=== PATIENT | male | born 1975 | race Caucasian/White ===

== ENCOUNTER 2017-02-20 18:50 | Emergency (ER) | payer BC ==
[2017-02-20 19:08] VITALS: BP 127/73
[2017-02-20] MEDS ORDERED: predniSONE TAB* 20 MG PO ONE (19:20)
--- NOTE | 2017-02-20 19:20 | UC ---
Lower Extremity/Ankle HPI - HPI Summary HPI Summary: 4 days of left foot pain, with erythema of the first great MCP joint. Pain with weight bearing, and pain is not relieved by use of ibuprofen. He has a previous history of the same, and recalls seeing Dr. Mata about 4 years ago and being diagnosed with gout. Indomethacin was given at that time, and he stopped it after one dose due to dizziness. He has recently lost 10 pounds when he gave up soda and began eating salads, less beef. He does not drink alcohol. - History of Current Complaint Chief Complaint: UCLowerExtremity Stated Complaint: LEFT FOOT COMPLAINT Time Seen by Provider: 02/20/17 18:58 Hx Obtained From: Patient Onset/Duration: Gradual Onset, Lasting Days - 4 Severity Initially: Moderate Severity Currently: Moderate Aggravating Factor(s): Standing, Ambulation Alleviating Factor(s): Rest Able to Bear Weight: Yes - Risk Factors Gout Risk Factors: Age Over 40, Male, Obesity DVT Risk Factors: Negative Septic Arthritis Risk Factor: Negative - Allergies/Home Medications Allergies/Adverse Reactions: Allergies Allergy/AdvReac Type Severity Reaction Status Date / Time No Known Allergies Allergy Verified 02/20/17 19:03 Home Medications: Home Medications Ibuprofen TAB* [Advil TAB*] 800 mg PO Q6H PRN 02/20/17 [History Confirmed ] PMH/Surg Hx/FS Hx/Imm Hx - Additional Past Medical History Additional PMH: obese - Surgical History Surgical History: Yes Surgery Procedure, Year, and Place: uvula, tonsils 09/2015 Dr. Weiss - Family History Known Family History: Positive: Other - mother has had pancreatic cancer. - Social History Occupation: Employed Full-time - works for [employer] Lives: With Family Alcohol Use: None Substance Use Type: None Smoking Status (MU): Never Smoked Tobacco Review of Systems Constitutional: Other - recent weight loss. Skin: Negative Eyes: Negative ENT: Negative Respiratory: Negative Cardiovascular: Negative Gastrointestinal: Negative Genitourinary: Negative Motor: Negative Neurovascular: Negative Musculoskeletal: Arthralgia Neurological: Negative Psychological: Negative All Other Systems Reviewed And Are Negative: Yes Physical Exam Triage Information Reviewed: Yes Appearance: Pain Distress - mild to moderate., Obese Vital Signs: Initial Vital Signs Temp 98.1 F 02/20/17 18:56 Pulse 61 02/20/17 18:56 Resp 18 02/20/17 18:56 BP 127/73 02/20/17 18:56 Pulse Ox 98 02/20/17 18:56 Eye Exam: Normal Respiratory: Positive: Lungs clear, Normal breath sounds Cardiovascular: Positive: RRR, No Murmur Musculoskeletal: Positive: Other: - left great toe with erythema and swelling, extending to the medial forefoot. MTP rom is decreased. Ankle rom is ok. Neurological Exam: Normal Neurological: Positive: Alert Psychological Exam: Normal Skin: Positive: Other - erythema left foot Lower Extremity Course/Dx - Course Course Of Treatment: steroids tonight. colchicine tomorrow. Continue nsaid's and he might try use of indomethacin. - Differential Dx/Diagnosis Differential Diagnosis/HQI/PQRI: Bursitis, Cellulitis, Gout, Sprain Provider Diagnoses: gout left foot Discharge - Discharge Plan Condition: Stable Disposition: HOME Prescriptions: Colchicine* [Colcrys*] 0.6 mg PO BID #2 tab Patient Education Materials: Gout (ED) Additional Instructions: Follow up with Dr. Mata for blood pressure check and to determine need for blood work to follow up on treatment of gout. You have had a high dose oral steroid tonight, and tomorrow you will take colchicine to help break up the crystals. You can continue use of ibuprofen 800mg every 6 hours for control of pain for the next several days.
== END 2017-02-20 19:42 | disposition home or self-care (01) ==
LOC: UCCORT 18:50
DX: M10.072 Idiopathic gout, left ankle and foot (principal); E66.9 Obesity, unspecified
CPT/HCPCS: 99212; G0463; J7512

== ENCOUNTER 2017-03-05 16:53 | Emergency (ER) | payer BC ==
[2017-03-05 17:04] VITALS: BP 135/64
--- NOTE | 2017-03-05 18:18 | UC ---
Lower Extremity/Ankle HPI - HPI Summary HPI Summary: see previously for same c/o treated with cholcrys with relief for a few days. Now has return of pain in left great toe with erythema--is unable to get in to pcp for 6 weeks - History of Current Complaint Chief Complaint: UCLowerExtremity Stated Complaint: LEFT FOOT PAIN Time Seen by Provider: 03/05/17 18:15 Hx Obtained From: Patient Onset/Duration: Gradual Onset, Lasting Weeks, Still Present Severity Initially: Moderate Severity Currently: Moderate Pain Intensity: 6 Pain Scale Used: 0-10 Numeric Aggravating Factor(s): Standing, Ambulation Alleviating Factor(s): Rest Able to Bear Weight: Yes - Allergies/Home Medications Allergies/Adverse Reactions: Allergies Allergy/AdvReac Type Severity Reaction Status Date / Time No Known Allergies Allergy Verified 03/05/17 17:04 PMH/Surg Hx/FS Hx/Imm Hx Previously Healthy: Yes - Surgical History Surgical History: Yes Surgery Procedure, Year, and Place: uvula, tonsils 09/2015 Dr. Weiss - Family History Known Family History: Positive: Other - mother has had pancreatic cancer. - Social History Occupation: Employed Full-time Lives: With Family Alcohol Use: None Substance Use Type: None Smoking Status (MU): Never Smoked Tobacco Review of Systems Constitutional: Negative Skin: Negative Eyes: Negative ENT: Negative Respiratory: Negative Cardiovascular: Negative Gastrointestinal: Negative Genitourinary: Negative Motor: Negative Neurovascular: Negative Musculoskeletal: Arthralgia - left great toe, Edema - around left great toe Neurological: Negative Psychological: Negative All Other Systems Reviewed And Are Negative: Yes Physical Exam Triage Information Reviewed: Yes Appearance: Well-Appearing, No Pain Distress, Well-Nourished Vital Signs: Initial Vital Signs Temp 97.8 F 03/05/17 16:55 Pulse 67 03/05/17 16:55 Resp 18 03/05/17 16:55 BP 135/64 03/05/17 16:55 Pulse Ox 98 03/05/17 16:55 Vital Signs Reviewed: Yes Eye Exam: Normal Eyes: Positive: Conjunctiva Clear ENT Exam: Normal ENT: Positive: Normal ENT inspection, Hearing grossly normal, Pharynx normal, TMs normal. Negative: Tonsillar swelling, Tonsillar exudate, Trismus, Muffled/ hoarse voice Dental Exam: Normal Neck exam: Normal Neck: Positive: Supple, Nontender Respiratory Exam: Normal Respiratory: Positive: Chest non-tender, Lungs clear, Normal breath sounds, No respiratory distress, No accessory muscle use Cardiovascular Exam: Normal Cardiovascular: Positive: RRR, No Murmur, Pulses Normal, Brisk Capillary Refill Musculoskeletal Exam: Normal Musculoskeletal: Positive: Strength Intact, ROM Limited @ - left great toe mt joint, Edema @ - left great toe Neurological Exam: Normal Neurological: Positive: Alert, Muscle Tone Normal Psychological Exam: Normal Skin Exam: Normal Lower Extremity Course/Dx - Course Course Of Treatment: cholcrys, naproxen, uric acid, cbc, post op shoe follow with pcp - Differential Dx/Diagnosis Differential Diagnosis/HQI/PQRI: Cellulitis, Contusion, Gout, Sprain, Strain Provider Diagnoses: Acute Gout left great toe Discharge - Discharge Plan Condition: Stable Disposition: HOME Prescriptions: Colchicine* [Colcrys*] 0.6 mg PO SEE INSTRUCTIONS #3 tab Naproxen Sodium [Naproxen Sodium 500 MG TAB] 500 mg PO BID #30 tab Patient Education Materials: Low Purine Diet (ED), Gout (ED) Referrals: Hammad Mata MD [Primary Care Provider] - 2 Weeks
[2017-03-06 13:58] LABS: Hematocrit 45 % (42-52); Hemoglobin 15.3 g/dl (14.0-18.0); Mean Corpuscular HGB Conc 34 g/dl (31-36); Mean Corpuscular Hemoglobin 29 pg (27-31); Mean Corpuscular Volume 86 fL (80-94); Mean Platelet Volume 9 um3 (7.4-10.4); Red Blood Count 5.25 10^6/ul (4.0-5.4); Red Cell Distribution Width 14 % (10.5-15)
== END 2017-03-05 18:58 | disposition home or self-care (01) ==
LOC: UCCORT 16:53
DX: M10.072 Idiopathic gout, left ankle and foot (principal)
CPT/HCPCS: 36415; 84550; 85025; 99213; G0463

== ENCOUNTER 2019-03-03 07:25 | Emergency (ER) | payer BC ==
[2019-03-03 08:00] VITALS: BP 160/78
--- NOTE | 2019-03-03 08:19 | UC ---
UC General HPI - HPI Summary HPI Summary: 43 yo gentleman c/o progressive R ear pain, started approx 1 week ago, progressively worse last 3 days. Has been swimming on vacation. Put otc ear drops in his ear, but they hurt. However, did notic some "stuff" come out of the ear. No sob / cp. + R "gland" swollen. No fever / chills. No cough / sob / cp. No gi issues. No rash. - History of Current Complaint Chief Complaint: UCEar Stated Complaint: RIGHT EAR Time Seen by Provider: 03/03/19 07:51 Hx Obtained From: Patient Pain Intensity: 4 - Allergy/Home Medications Allergies/Adverse Reactions: Allergies Allergy/AdvReac Type Severity Reaction Status Date / Time No Known Allergies Allergy Verified 03/05/17 17:04 PMH/Surg Hx/FS Hx/Imm Hx Previously Healthy: Yes - Surgical History Surgical History: Yes Surgery Procedure, Year, and Place: uvula, tonsils 09/2015 Dr. Weiss, hernia surgery age 4 - Family History Known Family History: Positive: Other - mother has had pancreatic cancer. - Social History Alcohol Use: None Substance Use Type: None Smoking Status (MU): Never Smoked Tobacco Review of Systems All Other Systems Reviewed And Are Negative: Yes Constitutional: Positive: Negative Skin: Positive: Negative Eyes: Positive: Negative ENT: Positive: Other - see hpi Respiratory: Positive: Negative Cardiovascular: Positive: Negative Gastrointestinal: Positive: Negative Genitourinary: Positive: Negative Motor: Positive: Negative Neurovascular: Positive: Negative Musculoskeletal: Positive: Negative Neurological: Positive: Negative Psychological: Positive: Negative Is Patient Immunocompromised?: No Physical Exam Triage Information Reviewed: Yes Appearance: Well-Nourished Vital Signs: Initial Vital Signs Temp 97.7 F 03/03/19 07:57 Pulse 77 03/03/19 07:57 Resp 16 03/03/19 07:57 BP 160/78 03/03/19 07:57 Pulse Ox 96 03/03/19 07:57 Vital Signs Reviewed: Yes Eye Exam: Normal ENT Exam: Other - Both TM's dull, bear. R eac + bear white d/c. EAC is red. ENT: Positive: Pharynx normal Neck exam: Other - + tender R tmj region, mild swelling. No redness / fluctuance / cellulitis trachea midline Neck: Positive: Supple Respiratory Exam: Normal Respiratory: Positive: Chest non-tender, Lungs clear, Normal breath sounds, No respiratory distress, No accessory muscle use Cardiovascular Exam: Normal Cardiovascular: Positive: RRR, No Murmur, Pulses Normal Abdominal Exam: Normal Abdomen Description: Positive: Nontender Musculoskeletal Exam: Normal - gait steady Neurological Exam: Normal - grossly nonfocal Psychological Exam: Normal Psychological: Positive: Normal Response To Family Skin Exam: Normal - no visible or reported rash Course/Dx - Course Course Of Treatment: Reviewed coa / tx plan. Questions as posed answered to the best of my ability. - Diagnoses Provider Diagnosis: Otitis externa, Acute serous otitis media of both ears Discharge - Sign-Out/Discharge Documenting (check all that apply): Patient Departure All imaging exams completed and their final reports reviewed: No Studies - Discharge Plan Condition: Stable Disposition: HOME Prescriptions: Amoxicillin/Clavulanate TAB* [Augmentin TAB 875*] 875 mg PO BID #20 tab Neomyc/Polym/HC 1% OTIC SUSP* [Cortisporin Otic Susp 1%*] 4 drop RIGHT EAR TID 5 Days #1 btl Patient Education Materials: Antihistamine (By mouth), Otitis Externa (ED), Serous Otitis Media (ED) Referrals: Hammad Mata MD [Primary Care Provider] - Additional Instructions: Follow up with your primary care physician, as needed. If still hurts after 5 days, then schedule recheck. Seek medical attention for worse or new problems. - Billing Disposition and Condition Condition: STABLE Disposition: Home
== END 2019-03-03 08:41 | disposition home or self-care (01) ==
LOC: UCCORT 07:25
DX: H60.93 Unspecified otitis externa, bilateral (principal); H65.03 Acute serous otitis media, bilateral
CPT/HCPCS: 99212; G0463